=== PATIENT | female | born 1930 | race Caucasian/White ===

== ENCOUNTER 2017-01-08 18:53 | Observation (INO) | payer MEDICARE, OTHER ==
[~2017-01-08] VITALS: Ht 160 cm; Wt 54.2 kg
[~2017-01-08 18:53] MED LIST: ASPI-973 PO; ATEN25TA PO; LISI10TA2 PO; MECL-125 PO
--- NOTE | 2017-01-08 18:54 | ED.REPORT ---
HPI-Stroke / CVA Jan 08, 2017 ED Provider: Addi Lane MD History of Present Illness: OCC An 86 year old female with a history of hypertension, bilateral carotid artery stenosis, COPD, cancer and alcohol use is brought to the ED via EMS due to altered mental status. The pt was found in her home by friends at 18:00, nonverbal and not following commands. Last known normal is not known. In the ED , the pt is able to respond to questions. The pt denies consumption of alcohol today but she had two glasses of wine tonight per family. The pt's family states that the pt does not have a history of alcohol abuse. History is limited by pt condition. Nursing Notes Stated Complaint: CODE STROKE Nursing Notes Reviewed: Yes ([employer], [employer] not reocnciled) Allergies: Coded Allergies: meperidine HCl (Verified Allergy, Intermediate, Nausea,Vomiting,Diarrhea, 04/11/14) nicotine (Verified Allergy, Intermediate, Rash,Itching,, 04/13/14) Redness and swelling at site Scheduled Aspirin (Aspirin) 81 Mg Tablet.dr 81 MG PO DAILY Atenolol (Atenolol) 25 Mg Tablet 25 MG PO DAILY (Reported) Lisinopril (Lisinopril) 10 Mg Tablet 10 MG PO DAILY (Reported) Scheduled PRN Meclizine HCl (Meclizine HCl) 25 Mg Tab.chew 25 MG PO DAILY PRN PRN For Dizziness (Reported) General Time Seen by Provider: 18:54 Chief Complaint Other (Altered mental status) Hx Obtained From: Patient, EMS Arrived By: Ambulance Time last known well unknown Sudden in Onset?: Yes Progression Since Onset: Gradually improving Recent Healthcare: No recent hospitalization Similar Sx Previous: No Risk Factors NIH Stroke Scale Level of Consciousness: Alert and responsive (0) Ask Month & Age: Both questions right (0) Open/Close Eyes/Hand Bracelet Form Coverer: Performs both tasks (0) Horizontal EO Movements: None (0) Visual Hayes: No visual loss (0) Facial Palsy: Normal symmetry (0) Right Arm Motor Drift (10s): No drift 10 sec (0) Left Arm Motor Drift (10s): No drift 10 sec (0) Right Leg Motor Drift (5s): No drift 5 sec (0) Left Leg Motor Drift (5s): No drift 5 sec (0) Limb Ataxia FNF/Heel-Cameron: No ataxia (0) Sensation (Arms/Legs/Face): No sensory loss (0) Language Aphasia: Loss fluency ID matls (1) (will not name two of the items) Dysarthria: No dysarthria, normal (0) (slow speech) Extinction/Inattention: No exctinct/inattent (0) NIHSS Score: 1 Time NIHSS Performed: 18:56 Date NIHSS Performed: Jan 08, 2017 Past Medical History Past Medical History History of CLL, nonprogressive and asymptomatic per oncology note 2014 History of stage I a right lung adenocarcinoma, status post stereotactic body radiation therapy without recurrence History of osteoporosis History of bilateral carotid artery stenosis History of chronic vertigo find history hypertension History of mild to moderate COPD History of superficial bladder cancer status post cystoscopy's Reports: Hypertension Past Surgical History Kidney "repositioning" Appendectomy VENESSA/BSO Reports: Appendectomy, Hysterectomy, Tonsillectomy Smoking History Current Every Day Smoker Social History Alcohol Use: 1-3 per day Review of Systems Unable to Obtain ROS Mental status Physical Exam Initial Vital Signs Vital Signs (First) Date Time Temp Pulse Resp B/P Pulse Ox O2 Delivery O2 Flow Rate FiO2 01/08/17 19:02 36.4 60 16 118/62 96 Room Air Initial VS: Unavailable (none on chart, ordered), Vital signs normal General/Constitutional: Awake, Alert slow, speaks in soft tones but gives appropriate answers short, 1-2 word answers Head / Eyes: Atraumatic, Normocephalic, PERRL, EOMI Neck: Atraumatic, Supple, Full range of motion Respiratory / Chest: Atraumatic, Breath sounds NL, Breath sounds = bilat, No respiratory distress Cardiovascular: Heart rate NL, Regular rhythm, Heart sounds NL Neurologic: Oriented X3, No motor deficits, No sensory deficits nonfocal exam ENT: Atraumatic, Airway patent, Mucous membranes moist Abdomen: Atraumatic, Soft, Non-tender Upper Extremity / MS: Atraumatic, Full range of motion Lower Extremity / Pelvis / MS: Atraumatic, Full range of motion Skin: Atraumatic, Color NL, No rash, Warm, Dry Psychiatric: Mood NL Abnormal Mood/Affect: Positive: Flat affect Back: Atraumatic, Full range of motion Interpretation & Diagnostics Lab Results Interpretation Result Diagram: 01/08/17 1907 01/08/171906 Test 01/08/17 19:07 01/08/17 19:25 White Blood Count 30.0th/mm3 (3.8-10.1) Red Blood Count 3.81mil/mm3 (3.90-5.20) Hemoglobin 11.9g/dL (12.0-15.6) Hematocrit 36.4% (35.0-46.0) Mean Corpuscular Volume 95.5fL (81-100) Mean Corpuscular Hemoglobin 31.2pg (27.0-35.0) Mean Corpuscular Hemoglobin Concent 32.7% (32.0-37.0) Red Cell Distribution Width 15.7% (12.3-15.4) Platelet Count 264bil/L (150-400) Neutrophils (%) (Auto) 27% (40-74) Lymphocytes (%) (Auto) 67% (14-46) Monocytes (%) (Auto) 3% (4-12) Eosinophils (%) (Auto) 3% (0-5) Basophils (%) (Auto) 0% (0-3) Hematology Comments Prothrombin Time 9.9sec (8.1-12.5) Prothromb Time International Ratio 0.93ratio Activated Partial Thromboplast Time 22.4sec (22.8-33.0) Sodium Level 137mEq/L (134-144) Potassium Level 3.7mEq/L (3.5-5.2) Chloride Level 100mEq/L (97-108) Carbon Dioxide Level 22mmol/L (18-29) Blood Urea Nitrogen 15mg/dL (8-27) Creatinine 0.73mg/dL (0.57-1.00) Estimat Glomerular Filtration Rate 109mL/min (>59) Glucose Level 99mg/dL (60-99) Calcium Level 8.7mg/dL (8.5-10.1) Total Bilirubin 0.2mg/dL (0.0-1.2) Aspartate Amino Transf (AST/SGOT) 16U/L (0-50) Alanine Aminotransferase (ALT/SGPT) 9U/L (0-32) Alkaline Phosphatase 93U/L (25-165) Troponin T < 0.010ug/L (0.0-0.011) Total Protein 6.4g/dL (6.4-8.4) Albumin 3.6g/dL (3.4-5.0) Alcohols 219mg/dL (0-10) Urine Color Yellow (YELLOW) Urine Appearance Clear (CLEAR,HAZY) Urine pH 5.5 (5.0-8.0) Urine Specific [place] 1.005 (1.003-1.035) Urine Protein Negativemg/dL (NEG,TRACE) Urine Glucose (UA) Negativemg/dL (NEGATIVE) Urine Ketones Negativemg/dL (NEGATIVE) Urine Occult Blood Negative (NEGATIVE) Urine Nitrite Negative (NEGATIVE) Urine Bilirubin Negative (NEGATIVE) Urine Urobilinogen Normalmg/dL (NORMAL) Urine Leukocyte Esterase Trace (NEGATIVE) Urine RBC 0-2/hpf (0-2) Urine WBC 0-5/hpf (0-5) Urine Epithelial Cells Occasional/hpf (NONE-MOD) Urine Crystals None seen (NONE SEEN) Urine Bacteria Few/hpf (NONE-FEW) Urine Hyaline Casts None/lpf (NONE) Urine Granular Casts None seen (NONE SEEN) Urine Waxy Casts None seen (NONE SEEN) Urine Red Blood Cell Casts None seen (NONE SEEN) Urine White Blood Cell Casts None seen (NONE SEEN) Urine Mucus Present (None Seen) Urine Trichomonas None seen (NONE SEEN) Urine Yeast None (NONE SEEN) Urinalysis Comment None Urine Culture Reflexed Indicated Lab Results Interpretation: CBC positive leukocytosis, patient with CLL and chronic leukocytosis CMP normal U/A negative initial EtOH, blood: 0.219 ECG Interpretation ECG Interpretation: normal sinus rhythm with a rate of 58 right axis deviation Time: 19:11 Interpreted by: ED physician CT Head Interpretation IMPRESSION: 1. No acute intracranial disease process. 2. Findings telephoned to Dr. Addi Lane on 01/08/2017 at 1911 hrs. This study fulfills neurological imaging criteria for inclusion or exclusion of acute stroke therapies based on available published neurological guidelines. Dictated by: Loren Henderson MD, PhD on 01/08/2017 at 19:08 Approved by: Loren Henderson MD, PhD on 01/08/2017 at 19:14 Interpretation / Wet Read by: Interpret - Radiologist Re-Eval/Medical Decision Med Decision/Clinical Course This is an 86-year-old female brought by EMS with a stroke alert but not confirmed also normal other hour prior to arrival. Very limited initial history , although later when family arrived they indicate that patient was at her baseline, then after dinner seemed unsteady, went to the bathroom and collapsed the thought was altered so contacted 911. They are concerned about a stroke. He reports the patient had "2 glasses of wine". She had no focal motor deficits, was slow to respond. Accu-Chek was normal. Vitals are normal. Here in the department she is indeed slow, her speech is very soft, possibly slightly slurred, but again I do not appreciate any focal weakness on one side or the other, there is no facial droop. However she cannot converse or carry a normal conversation, although when she answers questions they are generally appropriate if extremely limited in content. She denies being on anticoagulants. I do not appreciate visible signs of trauma. She is in a normal sinus rhythm. Noncontrast head CT was obtained was negative for acute pathology. The patient smells slightly of EtOH, and EtOH level sent and was significantly elevated. Patient slowly improving. Our family arrived, they are not convinced that this is simply a alcohol level-although and ETOH of 0.219 for an 86-year-old remain suspicious as the likely etiology here. Family insists are they are not comfortable taking her home and want her admitted for observation status, they are approximately 8 family members in the room and all unanimous to this effect. Given the absence of focal deficits, given the likely have alternate explanations, the patient does not meet criteria for TPA administration. At this point the plan is admission for observation. I think allowing to sober and reevaluate as the main intervention at this point. The family claim that the patient is not a long-term alcoholic or with risk for withdrawal, but the patient will need to be monitored. She is making improvement and is more alert as time proceeds in the department. Source of Hx: Old records, Family Re-Evaluation/Progress : Time of Eval: 20:27 Re-Evaluation/Progress Note: Pt rechecked with family present. Her condition is improving, though she is not yet at baseline. The pt's family requests admission. The diagnosis and plan for admission are discussed. The pt understands and agrees with the plan. All questions are addressed at this time. Consultation : Referral / Consult Name: Clementina Pérez DO Consulted With: Hospitalist Call Returned at: 21:30 Heel Lift Gouger: Agrees with eval, Agrees with plan, Accepts admit Note: Spoke with Dr. Pérez, hospitalist, regarding pt's case. Dr. Pérez agrees with the evaluation and agrees to admit the pt. Differential Diagnosis: Positive: Intoxication, alcohol, Negative: Atrial fibrillation, Atypical migraine, Cerebellar hemorrhage, Cerebrovascular accident, Delirium tremens, Epidural hemorrhage, Hepatic encephalopathy, Hyperglycemia, Hypoglycemia, Intraparench hemorrhage, Mass lesion, Mult Scleros exacerbation, Psychiatric illness, Seizure disorder, Sepsis , Subarachnoid hemorrhage, Subdural hemorrhage Counseled Regarding: Diagnosis, Lab results, Need for admission Patient Discharge & Departure Impression: Primary Impression: Altered mental status Altered mental status type: unspecified Qualified Code: R41.82 - Altered mental status, unspecified Additional Impression: Alcohol intoxication Complication of substance-induced condition: uncomplicated Qualified Code: F10.120 - Alcohol abuse with intoxication, uncomplicated Disposition: ADMITTED TO HOSPITAL Discharge Condition All VS Reviewed: Yes Condition: Stable Referrals: Renee Oropeza MD (PCP) Scribe Attestation Portions of this note were transcribed by Pita Hdz. I, Dr. Lane personally performed the history, physical exam and medical decision-making; I reviewed and confirmed the accuracy of the information in the transcribed note. Signed by: Kyaw Castro, 01/08/2017 and 2131. copies to: Renee Oropeza MD, Matthew F MD Jan 08, 2017 18:54 PITA HDZ Jan 08, 2017 19:12
[2017-01-08 19:02] VITALS: BP 118/62; PULSE 60; RESP 16; O2SAT 96
[2017-01-08 19:11] LABS: Mean Corpuscular Hemoglobin 31.2 pg (27.0-35.0)
[2017-01-08 19:14] LABS: Mean Corpuscular Volume 95.5 fL (81-100); Platelet Count 264 bil/L (150-400)
--- NOTE | 2017-01-08 19:15 | DRSVH ---
PROCEDURE: CT BRAIN (TPA) ([id number]) INDICATIONS: LEFT SIDED WEAKNESS TECHNIQUE: Noncontrast 4.5 mm thick angled axial sections acquired from the foramen magnum to the vertex, with c oronal reformats. COMPARISON: [facility], CT, BRAIN W/O CONTRAST, 04/28/2010, 9:30. FINDINGS: Image quality: Excellent. CSF spaces: Basal cisterns are patent. No extra-axial fluid collections. The ventricles are symmet shira in size and shape. Brain: No intracranial bleeds or masses. There is cerebral volume loss for age, with resultant vent ricular and sulcal prominence. There are periventricular and deep white matter chronic small vessel ischemic changes. Chronic, small, right thalamic with an infarct is noted. There is intracranial inte rnal carotid artery atherosclerosis. Skull and face: Calvarium and visualized facial bones appear intact, without suspicious lesions. Sinuses: Visualized sinuses and mastoids are clear. IMPRESSION: 1. No acute intracranial disease process. 2. Findings telephoned to Dr. Addi Lane on 01/08/2017 at 1911 hrs. This study fulfills neurological imaging criteria for inclusion or exclusion of acute stroke therapie s based on available published neurological guidelines. Dictated by: Loren Henderson MD, PhD on 01/08/2017 at 19:08 Approved by: Loren Henderson MD, PhD on 01/08/2017 at 19:14
[2017-01-08 19:29] LABS: BASOPHILS % (AUTO) 0 % (0-3); EOSINOPHILS % (AUTO) 3 % (0-5); INR 0.93 ratio; MONOCYTES % (AUTO) 3 % (4-12); NEUTROPHILS % (AUTO) 27 % (40-74)
[2017-01-08 19:30] VITALS: BP 122/65; PULSE 63; RESP 16; O2SAT 97
[2017-01-08 19:35] LABS: TROPONIN T < 0.010 ug/L (0.0-0.011)
[2017-01-08 19:52] LABS: APPEARANCE,URINE CLEAR (CLEAR,HAZY); COLOR,URINE YELLOW (YELLOW); OCCULT BLOOD,URINE NEGATIVE (NEGATIVE); PH,URINE 5.5 (5.0-8.0); UROBILINOGEN,URINE NORMAL (NORMAL)
[2017-01-08 20:00] VITALS: BP 117/63; PULSE 60; RESP 16; O2SAT 97
[2017-01-08 21:00] VITALS: BP 123/67; PULSE 63; RESP 16; O2SAT 97
[2017-01-08 21:50] VITALS: BP 120/60; PULSE 62; RESP 16; O2SAT 60
[2017-01-08] MEDS ORDERED: Alum-Mag Hydrox-Simeth 30 mL Suspension PO PRN (22:20)
[2017-01-08] MEDS ORDERED: Labetalol 5 mg/mL 4 mL Inj IVPUSH PRN (22:20)
[2017-01-08] MEDS ORDERED: Ondansetron 2 mg/mL 2 mL Inj IVPUSH PRN (22:20)
[2017-01-08] MEDS ORDERED: Polyethylene Glycol (PEG) 17 Gm Powder PO PRN (22:20)
[2017-01-08 22:21] VITALS: BP 145/76; PULSE 68; RESP 16; O2SAT 96
[2017-01-08] MEDS ORDERED: Labetalol 5 mg/mL 20 mL Inj IVPUSH PRN (22:29)
--- NOTE | 2017-01-08 22:30 | NUR ---
Admission Note [place] [facility] [place] at 2213, alert and orientedx3, [place], right ear deaf, denies any pain/N/V/SOB/fever/chills/numbness/tingling. States dizziness,vertigo when get up and ambulate to bed, generalized weakness, no focal neuro deficit noted, speech slow but understandable,no facial droop noted,tongue midline, strength equal bilaterally,sensation intact. Lung sounds clear, HR regular, no murmur, tele: SR 70 per predictive maintenance technician. Abdomen soft, nontender, BT active, no edema at extremities. Pt oriented to call lights and plan, magan alarm on. Care ongoing.
[2017-01-09 03:43] VITALS: BP 171/89; PULSE 64; RESP 16; O2SAT 96
--- NOTE | 2017-01-09 03:53 | PCM.HPMED ---
Subjective Date of Service Jan 08, 2017 Primary Provider: Admitting Physician: Clementina Pérez DO Primary Care Physician: Renee Oropeza MD Attending Physician: Clementina Pérez DO Admit Status: From the Emergency Department, 23-Hour Observation Chief Complaint: Altered mental status History of Present Illness: Rosi Riley is an 86-year-old woman with past medical history significant for hypertension, bilateral carotid artery stenosis, and COPD who is brought to the ED via EMS due to altered mental status. Patient was in her normal state of health until late in the afternoon when her roommate heard her fall in the bathroom. Roommate stated that after the fall the patient was nonverbal and not following commands and she subsequently called EMS. On presentation to [facility] examination by the ED physician revealed that the patient had no focal deficits but was slow to speak but no specific slurring of her speech. At the time of my examination the patient was alert and oriented and speaking clearly. She notes that prior to her fall she had 2 cocktails on an empty stomach and does not recall much following this including being transported to the ED and moved to the floor. She denies any chest pain, shortness of breath, nausea, vomiting , fever, chills, or headache. She does not feel she has any focal deficits but does feel weak at this time. Upon further questioning about her alcohol use the patient consistently has 2-3 cocktails a night contrary to the family's history. On presentation to the ED vitals were 36.4, pulse 60, respiratory rate 16 saturating 96% on room air, blood pressure 118/62. Labs remarkable for blood alcohol level of 219, white blood cell count of 30 but this is chronic in nature due to her CLL, and CMP was unremarkable. CT of the head was obtained and revealed no acute cranial disease process. Due to patient's initial altered mental status she was admitted to the floor for further observation. Review of Systems: Review of systems unobtainable due to patient's current state. Allergies Coded Allergies: meperidine HCl (Verified Allergy, Intermediate, Nausea,Vomiting,Diarrhea, 04/11/14) nicotine (Verified Allergy, Intermediate, Rash,Itching,, 04/13/14) Redness and swelling at site Home Medications Meclizine PMH Chronic lymphocytic leukemia (CLL), nonprogressive and nonsymptomatic. History of stage IA (T1a N0) right lung adenocarcinoma, status post stereotactic body radiation therapy (SBRT), without recurrence. Osteoporosis. Bilateral carotid artery stenosis. Chronic vertigo. COPD Hypertension Surgical History Hysterectomy Appendectomy Family History Sister - cancer Social History Hx Alcohol Use: Yes (2 cocktails a night) Hx Substance Use: No Hx Tobacco Use: No Smoking Status: Former Smoker (quit in 1970) Years of Smokin Living Arrangement: with Friends/Roommate Exam Vital Signs Vital Sign - Last Date Time Temp Pulse Resp B/P Pulse Ox O2 Delivery O2 Flow Rate FiO2 01/08/17 22:21 36.4 68 16 145/76 96 Room Air Exam General: No acute distress, thin, frail, elderly woman. Appropriately interactive. Breath smells of alcohol. HEENT: Normocephalic, atraumatic. Pupils equal, round, and reactive to light and accommodation. Anicteric sclerae, moist conjunctivae, and no lid lag. Oropharynx free of erythema and cobble stoning with moist mucosa. Neck: Supple with full range of motion. No jugular venous distension. No bruits. No lymphadenopathy or thyromegaly. Cardiovascular: Regular rate and rhythm with no murmurs, rubs, or gallops appreciated Pulmonary: Clear to auscultation bilaterally with no crackles, wheezes, or rhonchi. Normal respiratory effort with no use of accessory muscles. Abdomen: Bowel tones present. Soft, nontender, nondistended. No hepatosplenomegaly or masses appreciated. Extremities: No clubbing, cyanosis, edema, or lymphadenopathy appreciated. Skin: Normal temperature, turgor, and texture; no rash, ulcers, or subcutaneous nodules appreciated. Neurological: Cranial nerves grossly intact. Strength equal bilaterally and tele marketing executive, biceps, triceps, plantar flexion, dorsiflexion. Reflexes, coordination, and sensory function within normal limits. No known gait impairment. Psychiatric: Normal mood and affect. Alert and oriented to person, place, and time. Lab and Diagnostics Result Diagram: 01/08/17190601/08/171906 X-Rays, CTs and MRIs CT BRAIN (TPA) ([id number]) IMPRESSION: 1. No acute intracranial disease process. 2. Findings telephoned to Dr. Addi Lane on 01/08/2017 at 1911 hrs. This study fulfills neurological imaging criteria for inclusion or exclusion of acute stroke therapies based on available published neurological guidelines. Dictated by: Loren Henderson MD, PhD on 01/08/2017 at 19:08 Approved by: Loren Henderson MD, PhD on 01/08/2017 at 19:14 12-lead ECG Normal sinus rhythm with heart rate of 58. Assessment & Plan Rosi Riley is an 86-year-old woman with past medical history significant for hypertension, bilateral carotid artery stenosis, and COPD who is brought to the ED via EMS due to altered mental status. Altered mental status, present on admission, resolving. - Etiology likely secondary to alcohol intoxication but TIA cannot be excluded. - CT of the brain showed no acute intracranial disease process. - Further imaging with MRI seems unnecessary but will defer to day team. - EKG showed normal sinus rhythm with heart rate of 58. - Echocardiogram ordered for the morning. - Aspirin 81 mg daily. Generalized weakness, present on admission, active. - Etiology likely age-related and deconditioning. - PT and OT evaluation in the morning. Vertigo, present on admission, chronic. - Patient states she takes meclizine as needed and has for over 10 years. CLL, present on admission, chronic. - Patient follows with oncology but has not required treatment at this time. - Leukocytosis when compared with prior levels is at her baseline. PRN Medications - Acetaminophen as needed for mild pain/fever/headache - Bowel regimen as needed - Antiemetic as needed Patient is admitted under observation status with expected length of stay less than 2 midnights due to severity of presenting symptoms, risk of adverse event, and complexity of treatment plan. Pain Evaluation: Adequate Pain Control GI Prophylaxis: Not indicated VTE Prophylaxis: Sub-Q Enoxaparin, SCDs Resuscitation Status: DNR/DNI:Do Not Resuscitate/Intubate Attending Statement The patient was seen and examined together with house staff on 01/09/2017 and I agree with the history, exam and plan as outlined in the note above. JANEY SALDAÑA DO Jan 08, 2017 22:31 Clementina Pérez DO Jan 09, 2017 04:13
[2017-01-09 06:15] LABS: BASOPHILS % (AUTO) 0.1 % (0-3); EOSINOPHILS % (AUTO) 0.8 % (0-5); MONOCYTES % (AUTO) 3.2 % (4-12); Mean Corpuscular Hemoglobin 31.6 pg (27.0-35.0); Mean Corpuscular Volume 95.2 fL (81-100); NEUTROPHILS % (AUTO) 20.9 % (40-74); Platelet Count 263 bil/L (150-400)
[2017-01-09 06:18] VITALS: PULSE 70
[2017-01-09 09:07] VITALS: PULSE 88
--- NOTE | 2017-01-09 10:51 | NUR ---
Evaluation completed. Please go to "Notes" then click on "Assessments and Notes" (bottom left corner of screen). Then select appropriate discipline tab on top of screen.
[2017-01-09] MEDS ORDERED: MECL-114 PO (11:24)
--- NOTE | 2017-01-09 12:22 | NUR ---
DONTE explained and signed. Copy of DONTE and Medicare self administered medication information given to pt.
[2017-01-09 14:17] VITALS: BP 131/64; PULSE 78; RESP 18; O2SAT 96
--- NOTE | 2017-01-09 14:49 | NUR ---
Evaluation completed. Please go to "Notes" then click on "Assessments and Notes" (bottom left corner of screen). Then select appropriate discipline tab on top of screen.
--- NOTE | 2017-01-09 17:03 | PCM.PNMED ---
Subjective Date of Service Jan 09, 2017 Subjective Patient did well overnight no acute complaints this morning. Nutrition little bit better actually what happened but she said she just does not feel herself yesterday. Does endorse drinking couple of alcoholic beverages but states this is an uncommon for her and they were not very strong. Nonetheless she also notes that she had and the stomach when drinking and that is not typical for her and she wonders that led to more severe response. Exam Vital Signs Vital Sign - Last Date Time Temp Pulse Resp B/P Pulse Ox O2 Delivery O2 Flow Rate FiO2 01/09/17 14:17 36.7 78 18 131/64 96 Room Air Intake and Output 01/08/17 01/08/17 01/09/17 Cumulative From/Thru 15:00 23:00 07:00 01/08/17 19:02 - 01/09/17 06:09 Intake Total 100 ml 100 ml Output Total 250 ml 1000 ml 1250 ml Balance -250 ml -900 ml -1150 ml Intake Oral 100 ml 100 ml Output Urine Total 250 ml 1000 ml 1250 ml General: Alert, Oriented X3, Cooperative, No Acute Distress Mouth: Mucous Membr Moist/[place] Cardiovascular: Regular Rate/Rhythm Extremities: No cyanosis/clubbing/edma bilat Neurological: Grossly Neurologically Intact IVs and Medications Medications Reviewed: Medications were reviewed in detail Lab and Diagnostics Result Diagram: 01/09/1751801/09/17518 X-Rays, CTs and MRIs CT BRAIN (TPA) ([id number]) IMPRESSION: 1. No acute intracranial disease process. 2. Findings telephoned to Dr. Addi Lane on 01/08/2017 at 1911 hrs. This study fulfills neurological imaging criteria for inclusion or exclusion of acute stroke therapies based on available published neurological guidelines. Dictated by: Loren Henderson MD, PhD on 01/08/2017 at 19:08 Approved by: Loren Henderson MD, PhD on 01/08/2017 at 19:14 12-lead ECG Normal sinus rhythm with heart rate of 58. Assessment & Plan Rosi Riley is an 86-year-old woman with past medical history significant for hypertension, bilateral carotid artery stenosis, and COPD who is brought to the ED via EMS due to altered mental status. Altered mental status, present on admission, resolving. - Etiology likely secondary to alcohol intoxication - Mentation is improving alcohol cessation, be multifactorial given chronic underlying microvascular changes in conjunction with insults of alcohol. - CT of the brain showed no acute intracranial disease process. - Further imaging with MRI seems unnecessary given improving mentation - EKG showed normal sinus rhythm with heart rate of 58. - Echocardiogram ordered for the morning, result is still pending - Aspirin 81 mg daily continued. Generalized weakness, present on admission, active. - Etiology likely age-related and deconditioning. - PT and OT consulted Vertigo, present on admission, chronic. - Patient states she takes meclizine as needed and has for over 10 years. CLL, present on admission, chronic. - Patient follows with oncology but has not required treatment at this time. - Leukocytosis when compared with prior levels is at her baseline. Disposition: Patient not yet back to baseline and is discharged home in the morning if she continues to improve at this rate. Pain Evaluation: Adequate Pain Control GI Prophylaxis: Not indicated VTE Prophylaxis: Sub-Q Enoxaparin, SCDs VTE Mechanical Devices: Intermittant Pneumatic CD Resuscitation Status: DNR/DNI:Do Not Resuscitate/Intubate Time spent 25 minutes Deondre Bynum DO Jan 09, 2017 17:03
--- NOTE | 2017-01-09 18:25 | NUR ---
Transfer: Patient transferred to [facility] room 239-1 @ approx 1830 via wheelchair accompanied by RAJI. notified. photovoltaic technician notified. Reported called to [facility] RN. No apparent distress noted at time of transfer.
--- NOTE | 2017-01-09 18:40 | NUR ---
Transfer Pt transferred at 1835. oriented to room, tele notified. Pt A&Ox4. VSS aside from elevated BP. Pt set up for dinner. Will monitor.
[2017-01-09 18:41] VITALS: BP 172/97; PULSE 79; RESP 16; O2SAT 97
[2017-01-09 22:39] VITALS: BP 165/79; PULSE 68; RESP 17; O2SAT 97
[2017-01-10] VITALS (10 sets, daily range): BP systolic 130–163; BP diastolic 68–94; PULSE 66–84; RESP 12–17; O2SAT 94–99
--- NOTE | 2017-01-10 04:49 | NUR ---
PAIN pt. reported of achy legs but refused pain medication at this time, alert and verbally responsive, continues on tele monitoring, SR 70 per geotechnical laboratory technician, hourly checks, no s/s of distress, call light in reach at all times.
[2017-01-10 10:57] LABS: BASOPHILS % (AUTO) 0.2 % (0-3); EOSINOPHILS % (AUTO) 0.7 % (0-5); MONOCYTES % (AUTO) 3.2 % (4-12); Mean Corpuscular Hemoglobin 30.9 pg (27.0-35.0); Mean Corpuscular Volume 96.4 fL (81-100); NEUTROPHILS % (AUTO) 28.8 % (40-74); Platelet Count 233 bil/L (150-400)
--- NOTE | 2017-01-10 11:33 | NUR ---
Social Work: Initial Assessment / Multidisciplinary Rounds Data: Pt is an 86 y/o female admitted for altered level of consciousness, ETOH. EMR reviewed. Pt discussed in rounds. MD states pt may d/c today or tomorrow. BLUEPRINT CLERK met with pt, role explained. Pt states that she lives in [place] with a roommate who cooks and cleans for her. Pt does not drive, has a cane and walker, has no hx of HH or SNF, no LTC or VA benefits. Pt states she does not feel comfortable going home today. Alcohol use explored: pt states she only drinks 2 drinks per night with her room mate before dinner, on the night of admission, she did not eat lunch and the alcohol was on an empty stomach. Pt denies any need for CD resources as this time and does not want to talk further on the subject. Assessment: Pt who is independent at baseline, no capable of all self care at this time. Pt's roommate cooks and cleans for her at baseline. BLUEPRINT CLERK recommending [facility]E, RN, PT, OT, BLUEPRINT CLERK for this pt. Plan: Pt will d/c home via POV when medically stable, likely tomorrow, possibly with [facility]E RN, PT, OT, BLUEPRINT CLERK, BLUEPRINT CLERK awaiting possible MD order for HH. BLUEPRINT CLERK will continue to follow. ANNAMARIE Garcia Addendum: 01/10/17 at 1139 by PAULETTE MANUEL SS Amended: Links added.
--- NOTE | 2017-01-10 11:48 | NUR ---
Rounds 1040 MD notified that pt continues to complain of significant vertigo, unstable on feet without assist. Orthostatics negative. notified at 1140 that pt had asymptomatic 7 seconds of PSCT around 0830 this am. Will continue to monitor.
--- NOTE | 2017-01-10 11:50 | PCM.PNMED ---
Subjective Date of Service Jan 10, 2017 Subjective Patient is still feeling very weak, having difficulty ambulating even short distances, not feeling back to baseline. Dizziness as well as a predominant complaint in spite of negative orthostatic vitals or other identifiable cause. Exam Vital Signs Vital Sign - Last Date Time Temp Pulse Resp B/P Pulse Ox O2 Delivery O2 Flow Rate FiO2 01/10/17 11:36 36.5 71 14 149/90 96 Room Air Intake and Output 01/09/17 01/09/17 01/10/17 Cumulative From/Thru 15:00 23:00 07:00 01/08/17 19:02 - 01/10/17 05:37 Intake Total 150 ml 250 ml Output Total 1250 ml Balance 150 ml -1000 ml Intake Oral 150 ml 250 ml Output Urine Total 1250 ml # Voids 1 1 Exam General: Alert, Oriented X3, Cooperative, No Acute Distress Mouth: Mucous Membr Moist/[place] Cardiovascular: Regular Rate/Rhythm Extremities: No cyanosis/clubbing/edema bilat. thin extremities. Neurological: Grossly Neurologically Intact IVs and Medications Medications Reviewed: Medications were reviewed in detail Lab and Diagnostics Result Diagram: 01/10/17 1052 01/09/17 0519 X-Rays, CTs and MRIs CT BRAIN (TPA) ([id number]) IMPRESSION: 1. No acute intracranial disease process. 2. Findings telephoned to Dr. Addi Lane on 01/08/2017 at 1911 hrs. This study fulfills neurological imaging criteria for inclusion or exclusion of acute stroke therapies based on available published neurological guidelines. Dictated by: Loren Henderson MD, PhD on 01/08/2017 at 19:08 Approved by: Loren Henderson MD, PhD on 01/08/2017 at 19:14 12-lead ECG Normal sinus rhythm with heart rate of 58. Assessment & Plan Rosi Riley is an 86-year-old woman with past medical history significant for hypertension, bilateral carotid artery stenosis, and COPD who is brought to the ED via EMS due to altered mental status. Altered mental status, present on admission, resolving. - Etiology likely secondary to alcohol intoxication - Mentation is improving alcohol cessation, be multifactorial given chronic underlying microvascular changes in conjunction with insults of alcohol. - CT of the brain showed no acute intracranial disease process. - Further imaging with MRI seems unnecessary given improving mentation - EKG showed normal sinus rhythm with heart rate of 58. - Echocardiogram remains pending - Aspirin 81 mg daily continued. Generalized weakness, present on admission, active. - Etiology likely age-related and deconditioning. - Home health services including PT and OT, in addition to home RN, are being considered. Vertigo, present on admission, chronic. - Patient states she takes meclizine as needed and has for over 10 years. - Continue this medication however not very effective at this time - As noted above orthostatic vitals are not positive - Way results of echocardiogram to evaluate possible cardiogenic cause - Central imaging may be considered if this condition proves refractory CLL, present on admission, chronic. - Patient follows with oncology but has not required treatment at this time. - Leukocytosis when compared with prior levels is at her baseline. Disposition: Patient not yet back to baseline, will consider discharge in a.m. with home health services medical evaluation continues to be negative for underlying pathology which may be corrected. Pain Evaluation: Adequate Pain Control GI Prophylaxis: Not indicated VTE Prophylaxis: Sub-Q Enoxaparin, SCDs VTE Mechanical Devices: Intermittant Pneumatic CD Resuscitation Status: DNR/DNI:Do Not Resuscitate/Intubate Time spent 30 minutes Deondre Bynum DO Jan 10, 2017 11:50
--- NOTE | 2017-01-10 16:16 | DRSVH ---
[facility] [address] [place] [address] Echocardiogram Report Name: TOÑO PRIETO Study Date: 01/10/2017 Height: 63 in Hospital Exam Location: [facility] Weight: 119 lb Gender: Female BSA: 1.6 m2 : 1930 Age: 86 yrs BP: 130/68 mm Hg Reason For Study: CVA Ordering Physician: [place] Performed By: Prem Morris Referring Physician: JANEY SALDAÑA Interpretation Summary Left ventricular wall thickness is mildly increased. Left ventricular systolic function is normal without focal wall motion abnormalities. The ejection fraction is estimated to be 60-65%. The right ventricle is normal in size, thickness and function. The right ventricular systolic pressure is estimated at 34 mmHg assuming a right atrial pressure of 3 mm Hg. The left atrium is not well visualized. Right atrium not well visualized. There is no Doppler evidence for an interatrial shunt. There is no significant valvular heart disease. The aortic root is normal size. The aortic arch could not be well visualized. There is moderate to severe abdominal aortic plaque. No obvious source for cardioembolic CVA. Otherwise, no significant changes since 04/12/2014. Procedure: A two-dimensional transthoracic echocardiogram with color flow and Doppler was performed. The study quality was technically adequate. Apical and parasternal short axis views of interatrial septum were suboptimal and precluded a meaningful bubble study. Comparison is made with the echocardiogram of 04/12/14. The patient was in normal sinus rhythm during the exam. Left Ventricle: The left ventricle is normal in size. Left ventricular wall thickness is mildly increased. Left ventricular systolic function is normal without focal wall motion abnormalities. The ejection fraction is estimated to be 60-65%. Assessment of diastolic parameters indicates normal left ventricular diastolic function and normal filling pressures. Right Ventricle: The right ventricle is normal in size, thickness and function. Atria: The left atrium is not well visualized. Right atrium not well visualized. There is no Doppler evidence for an interatrial shunt. Mitral Valve: The mitral valve leaflets appear mildly thickened, but open well. There is mild mitral annular calcification. There is no mitral regurgitation noted. Aortic Valve: The aortic valve is trileaflet. The aortic valve opens well. There is mild aortic valve sclerosis. There is no aortic valve stenosis. No aortic regurgitation is present. Tricuspid Valve: The tricuspid valve is normal. There is mild tricuspid regurgitation. The right ventricular systolic pressure is estimated at 34 mmHg assuming a right atrial pressure of 3 mm Hg. Pulmonic Valve: The pulmonic valve is not well visualized. There is no significant valvular heart disease. Great Vessels: The aortic root is normal size. The dimensions of the ascending aorta are normal. The aortic arch could not be visualized. The pulmonary artery is normal size. The IVC is of normal diameter and collapses greater than 50% with a sniff. This suggests a low right atrial pressure of 3 mm Hg. Pericardium/ Pleura There is no pericardial effusion. There is no pleural effusion. MMode/2D Measurements & Calculations LVIDd LVOT diam LV parada. diameter/BSA LV sys. diameter/BSA : 3.5 cm (cm/m^2): 2.3 (cm/m^2): 1.3 LVIDs Ao root diam : 2.0 cm FS: 44.8 %asc Aorta Diam EPSS : 0.2cm IVSd : 0.9cm LVPWd : 1.2 cm Doppler Measurements & Calculations Ao V2 max MV E max juan manuel MV E/A: 1.3 TR max juan manuel : 127.8 cm/sec : 75.7 cm/sec Med Peak E' Juan Manuel : 279.7 cm/sec Ao max PG MV A max juan manuel TR max P.3 mmHg : 6.5 mmHg : 59.1 cm/sec E/E' med: 18.5 Ao mean PG Lat Peak E' Juan Manuel LVOT Max Juan Manuel E/E' lat: 12.5 : 96.3 cm/sec E/e' average AIMEE(I,D): 2.6 cm sev ratio MV dec time Ao V2 mean LV V1 max PG AIMEE indexed to BSA : 0.26 sec : 81.2 cm/sec (cm^2/m^2): 1.7 Ao V2 VTI LV V1 VTI: 17.5 cm AIMEE(V,D): 2.4 cm2 Reading Physician:MARIE
[2017-01-11 06:43] VITALS: BP 155/84; PULSE 79; RESP 16; O2SAT 96
[2017-01-11 07:02] LABS: BASOPHILS % (AUTO) 0.2 % (0-3); EOSINOPHILS % (AUTO) 1.2 % (0-5); MONOCYTES % (AUTO) 3.6 % (4-12); Mean Corpuscular Hemoglobin 31.7 pg (27.0-35.0); NEUTROPHILS % (AUTO) 21.2 % (40-74); Platelet Count 234 bil/L (150-400)
[2017-01-11 08:12] VITALS: BP 174/89; PULSE 69; RESP 16; O2SAT 98
[2017-01-11 08:15] VITALS: PULSE 81
--- NOTE | 2017-01-11 10:00 | NUR ---
Social Work-multidisciplinary rounds/readiness for discharge: Data:EMR Reviewed. pt is on day 3 of hospitalization for Alerted level of consciousness per H&P. pt is likely medically stable later today. order received for HH-RN,PT, and OT. SW followed up with pt to discuss. PT/OT have cleared pt for home with HH services. SW provided pt with HH choice list. Pt has no agency preference, but is agreeable to hH services. SW referred to the rotating calendar and made referral to [facility]-RN,OT, and PT, access given. Pt confirms her roommate will provide transport home. F2F to be completed by . SW will continue to follow. Assessment:Pt who would benefit from HH. Plan:Pt to discharge home when medically stable via pOV. Referral to [facility]-RN,OT, and PT, F2F to be completed by . SW will continue to follow. ANNAMARIE [place]
--- NOTE | 2017-01-11 10:42 | NUR ---
Evaluation completed. Please go to "Notes" then click on "Assessments and Notes" (bottom left corner of screen). Then select appropriate discipline tab on top of screen.
--- NOTE | 2017-01-11 11:35 | PCM.DIMED ---
Discharge Instructions Date of Service Jan 11, 2017 Dates of Hospitalization Jan 08, 2017 at 21:23 Discharge Diagnosis Discharge Diagnosis acute alcohol intoxication, generalized weakness, deconditioning due to malnutrition chronic vertigo on Meclizine Diet Discharge Diet: No restrictions Activity Discharge Activity: Home Health Phyical Therapy Call your provider Call your provider for: Weakness (unilateral), Other Patient Instructions Patient Instructions You were hospitalized with confusion, likely due to alcohol drinking. Given your condition, you will be initiating home health, nursing visit and physical therapy. Please follow up with your doctor in 2weeks Please discontinue alcohol drinking as we discussed. Follow-up Provider: Renee Oropeza MD Follow-up with PCP in: 1 week Holli Tavera MD Jan 11, 2017 11:32
--- NOTE | 2017-01-11 12:34 | NUR ---
choice list provided. ANNAMARIE [place]
--- NOTE | 2017-01-11 12:34 | NUR ---
Social Work-discharge: Data:EMR reviewed. Pt is on day 3 of hospitalization for altered level of consciousness per H&P. Pt is medically stable for discharge. SW informed Lory with [facility] of discharge and provided her with F2F and orders for RN,PT, and OT. Pt is agreeable to plan and roommate to provide transport home. All updated and agreeable to plan. Assessment:Pt who would benefit from HH. Plan:Pt to discharge home today via POV. F2F and orders provided to [facility] for RN,PT, and OT. All updated and agreeable to plan. ANNAMARIE [place]
--- NOTE | 2017-01-11 14:21 | NUR ---
Discharge Patient d/c'd to home with [id number] via private vehicle. Discharge instructions given and patient verbalizes understanding. Follow up appt. made for January 19.
--- NOTE | 2017-01-11 22:47 | PCM.DC.MED ---
Discharge Summary Date of Service Jan 11, 2017 Dates of Hospitalization Date of Hospital Admission Jan 08, 2017 at 21:23 Date of Discharge: Jan 11, 2017 Providers: Admitting Physician: Clementina Pérez DO Primary Care Physician: Renee Oropeza MD Attending Physician: Holli Tavera MD Diagnosis at Time of Discharge Diagnosis at Time of Discharge acute encephalopathy due to alcohol intoxication, generalized weakness, deconditioning due to malnutrition chronic vertigo on Meclizine CLL Procedures XRay, CTs & MRIs CT BRAIN (TPA) ([id number]) IMPRESSION: 1. No acute intracranial disease process. 2. Findings telephoned to Dr. Addi Lane on 01/08/2017 at 1911 hrs. This study fulfills neurological imaging criteria for inclusion or exclusion of acute stroke therapies based on available published neurological guidelines. Dictated by: Loren Henderson MD, PhD on 01/08/2017 at 19:08 Approved by: Loren Henderson MD, PhD on 01/08/2017 at 19:14 ECG 12 Lead Normal sinus rhythm with heart rate of 58. Brief History HPI obtained by on 01/08 Rosi Riley is an 86-year-old woman with past medical history significant for hypertension, bilateral carotid artery stenosis, and COPD who is brought to the ED via EMS due to altered mental status. Patient was in her normal state of health until late in the afternoon when her roommate heard her fall in the bathroom. Roommate stated that after the fall the patient was nonverbal and not following commands and she subsequently called EMS. On presentation to [facility] examination by the ED physician revealed that the patient had no focal deficits but was slow to speak but no specific slurring of her speech. At the time of my examination the patient was alert and oriented and speaking clearly. She notes that prior to her fall she had 2 cocktails on an empty stomach and does not recall much following this including being transported to the ED and moved to the floor. She denies any chest pain, shortness of breath, nausea, vomiting , fever, chills, or headache. She does not feel she has any focal deficits but does feel weak at this time. Upon further questioning about her alcohol use the patient consistently has 2-3 cocktails a night contrary to the family's history. On presentation to the ED vitals were 36.4, pulse 60, respiratory rate 16 saturating 96% on room air, blood pressure 118/62. Labs remarkable for blood alcohol level of 219, white blood cell count of 30 but this is chronic in nature due to her CLL, and CMP was unremarkable. CT of the head was obtained and revealed no acute cranial disease process. Due to patient's initial altered mental status she was admitted to the floor for further observation. Hospital Course Rosi Riley is an 86-year-old woman with past medical history significant for hypertension, bilateral carotid artery stenosis, and COPD who is brought to the ED via EMS due to altered mental status. Acute encephalopathy likely due to ETOH intoxication pt underwent CTH which showed no acute intracranial process. Patient was given aspirin 81, TTE was unremarkable. pt returned to herself, AAOx3 upon d/c. Generalized weakness- Etiology likely age-related and deconditioning, possible CLL, pt was d/kiana to home with HH RN PT due to weakness. chronic dx Vertigo, present on admission, chronic. - Patient states she takes meclizine as needed and has for over 10 years. - Continue this medication however not very effective at this time - As noted above orthostatic vitals are not positive - Way results of echocardiogram to evaluate possible cardiogenic cause - Central imaging may be considered if this condition proves refractory CLL, present on admission, chronic. - Patient follows with oncology but has not required treatment at this time. - Leukocytosis when compared with prior levels is at her baseline. Exam Vital Signs (Last) Date Time Temp Pulse Resp B/P Pulse Ox O2 Delivery O2 Flow Rate FiO2 01/11/17 10:43 Room Air 01/11/17 08:15 81 01/11/17 08:12 36.7 16 174/89 98 Exam pt was examined on the day of d/c Test 01/08/17 19:07 01/08/17 19:25 01/09/17 05:19 01/11/17 06:20 Prothrombin Time 9.9sec (8.1-12.5) Prothromb Time International Ratio 0.93ratio Activated Partial Thromboplast Time 22.4sec (22.8-33.0) Magnesium Level 2.0mg/dL (1.6-2.6) Total Bilirubin 0.2mg/dL (0.0-1.2) Aspartate Amino Transf (AST/SGOT) 16U/L (0-50) Alanine Aminotransferase (ALT/SGPT) 9U/L (0-32) Alkaline Phosphatase 93U/L (25-165) Troponin T < 0.010ug/L (0.0-0.011) Total Protein 6.4g/dL (6.4-8.4) Albumin 3.6g/dL (3.4-5.0) Triglycerides Level 169mg/dL (0-149) Cholesterol Level 187mg/dL (100-199) LDL Cholesterol, Calculated 69.200mg/dL (0-99) VLDL Cholesterol 33.800mg/dL HDL Cholesterol 84mg/dL (>39) Cholesterol/HDL Ratio 2.23 (0.0-4.4) Alcohols 219mg/dL (0-10) Urine Color Yellow (YELLOW) Urine Appearance Clear (CLEAR,HAZY) Urine pH 5.5 (5.0-8.0) Urine Specific [place] 1.005 (1.003-1.035) Urine Protein Negativemg/dL (NEG,TRACE) Urine Glucose (UA) Negativemg/dL (NEGATIVE) Urine Ketones Negativemg/dL (NEGATIVE) Urine Occult Blood Negative (NEGATIVE) Urine Nitrite Negative (NEGATIVE) Urine Bilirubin Negative (NEGATIVE) Urine Urobilinogen Normalmg/dL (NORMAL) Urine Leukocyte Esterase Trace (NEGATIVE) Urine RBC 0-2/hpf (0-2) Urine WBC 0-5/hpf (0-5) Urine Epithelial Cells Occasional/hpf (NONE-MOD) Urine Crystals None seen (NONE SEEN) Urine Bacteria Few/hpf (NONE-FEW) Urine Hyaline Casts None/lpf (NONE) Urine Granular Casts None seen (NONE SEEN) Urine Waxy Casts None seen (NONE SEEN) Urine Red Blood Cell Casts None seen (NONE SEEN) Urine White Blood Cell Casts None seen (NONE SEEN) Urine Mucus Present (None Seen) Urine Trichomonas None seen (NONE SEEN) Urine Yeast None (NONE SEEN) Urinalysis Comment None Urine Culture Reflexed Indicated Sodium Level 142mEq/L (134-144) Potassium Level 4.1mEq/L (3.5-5.2) Chloride Level 102mEq/L (97-108) Carbon Dioxide Level 26mmol/L (18-29) Blood Urea Nitrogen 12mg/dL (8-27) Creatinine 0.81mg/dL (0.57-1.00) Estimat Glomerular Filtration Rate 96mL/min (>59) Glucose Level 82mg/dL (60-99) Calcium Level 9.2mg/dL (8.5-10.1) White Blood Count 19.0th/mm3 (3.8-10.1) Red Blood Count 3.98mil/mm3 (3.90-5.20) Hemoglobin 12.6g/dL (12.0-15.6) Hematocrit 38.2% (35.0-46.0) Mean Corpuscular Volume 96.0fL (81-100) Mean Corpuscular Hemoglobin 31.7pg (27.0-35.0) Mean Corpuscular Hemoglobin Concent 33.0% (32.0-37.0) Red Cell Distribution Width 15.4% (12.3-15.4) Platelet Count 234bil/L (150-400) Neutrophils (%) (Auto) 21.2% (40-74) Lymphocytes (%) (Auto) 73.6% (14-46) Monocytes (%) (Auto) 3.6% (4-12) Eosinophils (%) (Auto) 1.2% (0-5) Basophils (%) (Auto) 0.2% (0-3) Hematology Comments Discharge Medications As needed Meclizine (Bonine) 25 Mg Tab.chew 25 MG PO DAILY PRN PRN For Dizziness (Reported ) Followup Plan Disposition: home with PT vp business development Diet: No restrictions Discharge Activity: Home Health Phyical Therapy Patient Instructions You were hospitalized with confusion, likely due to alcohol drinking. Given your condition, you will be initiating home health, nursing visit and physical therapy. Please follow up with your doctor in 2weeks Please discontinue alcohol drinking as we discussed. Follow-up Provider: Renee Oropeza MD Follow-up with PCP in: 1 week Time spent 65min Holli Tavera MD Jan 11, 2017 22:47
== END 2017-01-11 14:05 | disposition home or self-care (01) ==
LOC: SED 18:53 → MPC 21:23 → MOC 01-09 18:30
PROVIDERS: ADMIT Internal Medicine; ATTEND Internal Medicine
DX: G31.2 Degeneration of nervous system due to alcohol (principal); R41.82 Altered mental status, unspecified; R53.1 Weakness; I10 Essential (primary) hypertension; J44.9 Chronic obstructive pulmonary disease, unspecified; R42 Dizziness and giddiness; M81.8 Other osteoporosis without current pathological fracture; C91.10 Chronic lymphocytic leukemia of B-cell type not having achieved remission; I65.23 Occlusion and stenosis of bilateral carotid arteries; Z87.891 Personal history of nicotine dependence; Z79.899 Other long term (current) drug therapy
CPT/HCPCS: 36415; 70450; 80048; 80053; 80061; 81000; 81002; 82075; 82948; 83036; 83735; 84484; 85025; 85610; 85730; 87086; 92610; 93005; 97162; 97166; 97530; 99285; C8929; G0378; G0480; G8978; G8979; G8996; G8997